=== PATIENT | female | born 1950 | race Caucasian/White ===

== ENCOUNTER 2018-07-16 18:46 | Emergency (ER) | payer MEDICARE, OTHER ==
[~2018-07-16] VITALS: Ht 157.5 cm; Wt 68.0 kg
--- NOTE | 2018-07-16 19:08 | NUR ---
ED Nurse Note: Received patient from JESSICA Galvez. s/p fall; patient was walking and tripped on the pothole on the street and fell. C/O left wrist/right knee pain. Pt AO4. NAD. VSS. Provided pt with pillow and ice.
[2018-07-16 19:11] VITALS: BP 133/85
[2018-07-16] MEDS ORDERED: HYDROcodone/Acetamin 5/325 tab ORAL ONE (19:15)
[2018-07-16] MEDS ORDERED: Tetanus/Diptheria/Pertussis Vaccine 0.5ml Syr IM ONE (20:00)
[2018-07-16] MEDS ORDERED: Bacitracin Oint UD TOPIC ONE (20:00)
--- NOTE | 2018-07-16 20:36 | Emergency Room Report ---
History of Present Illness General Chief Complaint: Multiple Trauma/Fall Source: Patient Present Illness HPI 67-year-old female presents to the emergency department complaining of 10 out of 10 in severity pain that is localized to the left wrist and anterior right knee status post mechanical fall after tripping over a pothole prior to arrival. Patient denies hitting her head she denies loss of consciousness. Patient reports falling on an outstretched hand. Patient reports pain is primarily in the left wrist and exacerbated upon movement or palpation. She reports mild pain in the anterior knee she states she is able to ambulate and fully bear weight on it. She denies previous injuries to the extremities. She denies midline neck or back pain. She also denies paresthesias. Allergies: Coded Allergies: No Known Allergies (Unverified , 07/16/18) Patient History Past Medical History: see triage record Past Surgical History: none Pertinent Family History: none Now: No Reviewed Nursing Documentation: PMH: Agreed; PSxH: Agreed Nursing Documentation-PMH Past Medical History: No History, Except For Review of Systems All Other Systems: negative except mentioned in HPI Physical Exam Vital Signs Date Time Temp Pulse Resp B/P (MAP) Pulse Ox O2 Delivery O2 Flow Rate FiO2 07/16/18 18:50 98.2 75 14 133/85 96 Room Air Sp02 EP Interpretation: reviewed, normal General Appearance: alert, GCS 15, non-toxic, mild distress Head: normocephalic, atraumatic Eyes: bilateral eye normal inspection, bilateral eye PERRL ENT: hearing grossly normal, normal voice Neck: full range of motion Respiratory: lungs clear, normal breath sounds, speaking full sentences Cardiovascular #1: regular rate, rhythm, normal capillary refill Cardiovascular #2: 2+ radial (R), 2+ radial (L) Musculoskeletal: back normal, gait/station normal, normal range of motion, swelling - left wrist -laterally, tender - lateral left wrist, no snuff box ttp. mild ttp to anterior right knee, no increased laxity or obvious deformity , swelling is noted anteriorly Neurologic: alert, oriented x3, responsive, motor strength/tone normal, sensory intact, speech normal, grossly normal Psychiatric: judgement/insight normal Skin: normal color, no rash, warm/dry, well hydrated, abrasions - right anterior knee Medical Decision Making PA Attestation Dr. Gallagher is my supervising Physician whom patient management has been discussed with. Diagnostic Impression: Primary Impression: Left wrist sprain Qualified Codes: S63.502A - Unspecified sprain of left wrist, initial encounter Additional Impressions: Abrasion Knee contusion Qualified Codes: S80.01XA - Contusion of right knee, initial encounter ER Course 67-year-old female presents to the emergency department complaining of 10 out of 10 in severity pain that is localized to the left wrist and anterior right knee status post mechanical fall after tripping over a pothole prior to arrival. Patient denies hitting her head she denies loss of consciousness. Patient reports falling on an outstretched hand. Patient reports pain is primarily in the left wrist and exacerbated upon movement or palpation. She reports mild pain in the anterior knee she states she is able to ambulate and fully bear weight on it. She denies previous injuries to the extremities. She denies midline neck or back pain. She also denies paresthesias. Ddx considered but are not limited to Fracture, dislocation, contusion, Sprain/ Strain/Spasm, scaphoid fx, knee effusion, abrasion just to name a few, Vital signs: are WNL, pt. is afebrile H&PE are most consistent with musculoskeletal injury will perform imaging to r/ o fractures/dislocations. ORDERS: - X-ray Left wrist 3 views, and right knee 3 views - negative for fx, Dislocation, or significant soft tissue injury, per preliminary read in ED, and signed by KERRIE Morris, my supervising physician has reviewed, and agrees with my interpretation. ED INTERVENTIONS: - Fosters - Tdap - wound cleaning and bacitracin and sterile dressing application by RN -Left Wrist Splint applied by architectural technologist. Pt. remains neurovascularly intact. - Motrin PO DISCHARGE: At this time pt. is stable for d/c to home. Will provide printed patient care instructions, and any necessary prescriptions. Care plan and follow up instructions have been discussed with the patient prior to discharge. Other X-Ray Diagnostic Results Other X-Ray Diagnostic Results #1: X-Ray ordered: Right Knee # of Views/Limited Vs Complete: 3 View Indication: Pain EP Interpretation: Yes KERRIE Xray: Interpretation reviewed, by supervising MD, and agrees with findings. Interpretation: no dislocation, no soft tissue swelling, no fractures Impression: No acute disease Electronically Signed by: Susan Morris PA-C Other X-Ray Diagnostic Results #2: X-Ray ordered: Left Wrist # of Views/Limited Vs Complete: 3 View Indication: Pain EP Interpretation: Yes KERRIE Xray: Interpretation reviewed, by supervising MD, and agrees with findings. Interpretation: no dislocation, no fractures, other - ST Swelling ulnar aspect Impression: Other - abnormal _ ST Swelling Last Vital Signs Date Time Temp Pulse Resp B/P (MAP) Pulse Ox O2 Delivery O2 Flow Rate FiO2 07/16/18 20:16 98.2 07/16/18 19:11 75 14 133/85 96 Room Air Status: improved Disposition: HOME, SELF-CARE Condition: Stable Scripts Ibuprofen* (MOTRIN*) 600 Mg Tablet 600 MG ORAL THREE TIMES A DAY, #30 TAB 0 Refills Prov: Susan Morris 07/16/18 Acetaminophen With Codeine (T#3) (TYLENOL #3 TAB*) Y Tab 1 TAB ORAL Q6H PRN for For Pain, #12 TAB Prov: Susan Morris 07/16/18 Patient Instructions: Abrasion, [id number], Wrist Sprain Additional Instructions: Take medications as directed. Follow up with an EKG MONITOR in 3-5 days, even if your symptoms have resolved. If symptoms persist MRI may be required at the discretion of your PCP or Ortho Specialist. --Please review list of primary care clinics, if you do not already have a primary care provider who can give you an Orthopedic Referral. Return sooner to ED if new symptoms occur, or current symptoms become worse. Do not drink alcohol, drive, or operate heavy machinery while taking Tylenol # 3 as this may cause drowsiness. - Please note that this Emergency Department Report was dictated using [employer] assistant technology software, occasionally this can lead to erroneous entry secondary to interpretation by the dictation equipment. Susan Morris Jul 16, 2018 20:36
[2018-07-16] MEDS ORDERED: IBUPROFEN600 MG ORAL (20:47)
[2018-07-16] MEDS ORDERED: ACETAMINOPHEN-1 EAC1 ORAL (20:47)
[2018-07-16 20:52] VITALS: BP 133/85
--- NOTE | 2018-07-16 20:52 | NUR ---
ER DISCHARGE NOTE: Patient is cleared to be discharged per ERMD, pt is aox4, on room air, with stable vital signs. Accompanied by family members. pt was given dc and prescription instructions, pt was able to verbalize understanding, pt id band removed. pt is able to ambulate with steady gait. pt took all belongings.
--- NOTE | 2018-07-17 11:25 | Diagnostic Imaging Report ---
Indication: Left wrist pain Findings: 3 views of the left wrist were obtained. No acute fractures, malalignment, erosions or periostitis are identified. Soft tissues are unremarkable. Impression: No acute findings.
--- NOTE | 2018-07-17 11:28 | Diagnostic Imaging Report ---
Indication: Pain Knee pain/trauma 3 views of the right knee were obtained. Findings: No acute fracture, malalignment, or joint effusion are identified. Joint space is relatively well-maintained. Impression: Negative for acute findings.
== END 2018-07-16 20:52 | disposition home or self-care (01) ==
LOC: EMR 19:22
DX: S63.502A Unspecified sprain of left wrist, initial encounter (principal); S80.01XA Contusion of right knee, initial encounter; W01.0XXA Fall on same level from slipping, tripping and stumbling without subsequent striking against object, initial encounter; Y92.9 Unspecified place or not applicable; Z23 Encounter for immunization
CPT/HCPCS: 29125; 90471; 90715; 99284